=== PATIENT | male | born 1960 | race Caucasian/White ===

== ENCOUNTER 2019-02-03 10:56 | Day surgery (SDC) | payer OTHER ==
[2019-02-03] MEDS: Lactated Ringers 1,000 ML IV SCH (11:19)
[2019-02-03] MEDS ORDERED: Propofol 200 MG/20 ML SDV ONE ×2 (11:59→12:23)
[2019-02-03] MEDS ORDERED: fentaNYL 100 MCG/2 ML SDV ONE (11:59)
--- NOTE | 2019-02-03 14:32 | OR ---
PREOPERATIVE DIAGNOSIS: Screening colonoscopy. POSTOPERATIVE DIAGNOSIS: Screening colonoscopy. PROCEDURE PERFORMED: Screening colonoscopy. INDICATIONS: Mr. Campbell is a 58-year-old male who presents for screening colonoscopy. He is 10 years out from his last colonoscopy. PROCEDURE IN DETAIL: This was done in the procedure room. He was placed in left lateral position. First, a rectal exam was done, was normal. Scope was slowly introduced into the rectum and slowly advanced to the rectum, sigmoid, descending, transverse, and ascending colon until the cecum was reached. Upon reaching the cecum, scope was slowly withdrawn looking at all mucosal surfaces on the way out. No mucosal abnormalities or lesions were noted. He did have moderate internal hemorrhoids. FINAL DIAGNOSIS: Hemorrhoids. BKD: 02/03/2019 12:38:47 MODL: 02/03/2019 12:57:00 /[id number] CC: [place], [place]
== END 2019-02-03 13:55 | disposition home or self-care (01) ==
LOC: VM.SDS 10:56
PROVIDERS: ATTEND Surgery
DX: Z12.11 Encounter for screening for malignant neoplasm of colon (principal); K64.8 Other hemorrhoids; M17.10 Unilateral primary osteoarthritis, unspecified knee; M19.042 Primary osteoarthritis, left hand; M19.041 Primary osteoarthritis, right hand; Z79.899 Other long term (current) drug therapy
CPT/HCPCS: J2704; J3010; J7120